=== PATIENT | male | born 1995 | race Caucasian/White ===

== ENCOUNTER 2016-11-21 08:12 | Day surgery (SDC) | payer OTHER ==
[2016-11-21] MEDS ORDERED: MIDAZOLAM 2 MG/2 ML INJ ONE (09:10)
[2016-11-21] MEDS ORDERED: METOCLOPRAMIDE HCL INJ/PF 10 MG/2 ML SDV ONE (09:10)
[2016-11-21] MEDS ORDERED: DEXAMETHASONE SOD PHOS INJ 10 MG/1 ML VIAL ONE (09:11)
[2016-11-21] MEDS ORDERED: SUCCINYLCHOLINE CHLORIDE INJ 200 MG/10 ML VIAL ONE (09:11)
[2016-11-21] MEDS ORDERED: FENTANYL CITRATE INJ/PF 250 MCG/5 ML AMPULE ONE (09:11)
[2016-11-21] MEDS ORDERED: ONDANSETRON HCL INJ/PF 4 MG/2 ML SDV ONE (09:11)
[2016-11-21] MEDS ORDERED: PROPOFOL INJ 200 MG/20 ML VIAL IV ONE (09:11)
[2016-11-21] MEDS ORDERED: LIDOCAINE 1%/EPINEPHRINE INJ 20 ML VIAL ONE (09:14)
[2016-11-21] MEDS ORDERED: OXYMETAZOLINE HCL 0.05% NASAL SPRAY 15 ML BOTTLE ONE ×2 (09:14→09:38)
[2016-11-21] MEDS ORDERED: HYDROCODONE/ACETAMINOPHEN 5-325 MG TABLET ONE (10:55)
--- NOTE | 2016-11-21 11:18 | [facility] OPERATIVE REPORT E ---
[facility] Operative Report NAME: OSMEL HERRON AGE: 21Y DATE OF SURGERY: 11/21/2016 ROOM: PREOPERATIVE DIAGNOSES: 1. Eustachian tube dysfunction. 2. Bilateral inferior turbinate hypertrophy. POSTOPERATIVE DIAGNOSES: 1. Eustachian tube dysfunction. 2. Bilateral inferior turbinate hypertrophy. PROCEDURE: 1. Left endoscopic balloon dilation of the eustachian tube. 2. Bilateral submucous reduction of the inferior turbinates. 3. Bilateral therapeutic outfracture of the inferior turbinates. SURGEON: SHELLI FRASER M.D. ANESTHESIA: General endotracheal. ESTIMATED BLOOD LOSS: 15 mL. COMPLICATIONS: None. INTRAOPERATIVE FINDINGS: 1. Bilateral inferior turbinate hypertrophy. 2. The left eustachian tube anatomy was within normal limits. INDICATIONS FOR SURGERY: A 21-year-old male with bilateral eustachian tube dysfunction and a history of prior tympanostomy tubes that recently extruded with return of symptoms particularly on the left side. He has had intermittent middle ear effusions and mild tympanic membrane retraction on the left side. We discussed balloon dilation versus tube replacement as options. We will try the balloon tuboplasty initially in hope of avoiding discomfort and operational issues on an [employer] duty [employer] that may present with tympanostomy tubes. PROCEDURE IN DETAIL: The patient was met in the preoperative holding area. All questions were answered and consent was verified. He was then brought back to the operating room, placed supine on the operating table, and general endotracheal anesthesia was induced without difficulty. The nasal cavity was decongested with oxymetazoline and the table was turned. He was prepped and draped in the standard fashion. A preoperative time out was performed. The procedure was performed with a 30-degree rigid endoscope. Careful insertion of the endoscope to the nasopharynx was used to visualize the eustachian tube opening. An Acclarent 6 x 16 mm balloon system was used for the frontal tip. The guidewire was threaded up the eustachian tube orifice under direct visualization followed by the balloon. It was inflated to 12 atmospheres of pressure for 2 minutes. There was some displacement of the balloon during the initial inflation and a second 2-minute dilation was carried out similarly. We then turned our attention to the inferior turbinates which were infiltrated with 1% lidocaine with 1:100,000 epinephrine. A small incision was made on the face of the turbinates and a submucous tunnel dissected over the turbinate bone. A 2.9 mm turbinate microdebrider blade was used to carry out a submucous reduction bilaterally. The turbinate bones were then outfractured with a Burdett elevator. The nasal cavity and nasopharynx were suctioned and he was turned over to the anesthesia for reversal and extubation. He tolerated the procedure well. DICTATING PHYSICIAN: SHELLI FRASER M.D. [id number] PHY#: [id number] ID: [id number] JOB#: [id number] ACCT: [id number] cc:SHELLI FRASER M.D. >
== END 2016-11-21 12:02 | disposition home or self-care (01) ==
LOC: SC 08:12
PROVIDERS: ATTEND Otolaryngology
PROC: 09TL8ZZ Resection of Nasal Turbinate, Via Natural or Artificial Opening Endoscopic (ICD-10-PCS; principal; 2016-11-21 09:15)
PROC: 097G4ZZ Dilation of Left Eustachian Tube, Percutaneous Endoscopic Approach (ICD-10-PCS; 2016-11-21 09:15)
DX: H69.82 Other specified disorders of Eustachian tube, left ear (principal); J34.3 Hypertrophy of nasal turbinates; F17.210 Nicotine dependence, cigarettes, uncomplicated
CPT/HCPCS: 30140; 69799; C1726 ×2; J2250; J3010; J3490 ×2; J2765; J0330; J2405; J2704; J1100; 160